=== PATIENT | male | born 1980 | race Caucasian/White ===

== ENCOUNTER 2018-01-19 18:26 | Inpatient (IN) ==
--- NOTE | 2018-01-19 19:54 | ED ---
HPI General Chief complaint: Abdominal Pain Stated complaint: abd pain Time Seen by Provider: 01/19/18 19:49 Source: patient Mode of arrival: ambulatory Limitations: no limitations History of Present Illness HPI narrative: patient is an alcoholic but currently quitting...patient just relocated to [place]. patient has had yellowing of eyes, ruq pain, n/v ongoing for past 3-4 days.... Has noted increasing distention to abdomen over the past 2 weeks Onset (ago): day(s) (4) Location: abdomen Radiation: non-radiation Severity: mild Severity scale (1-10): 2 Quality: aching Pain Consistency: intermittent Relieving factors: none Exacerbating factors: eating Associated symptoms: other (increasing swelling to his abdomen over past 2 weeks ) Treatments prior to arrival: none Related Data Home Medications Medication Instructions Recorded Confirmed No Known Home Medications 01/19/18 01/19/18 Allergies Allergy/AdvReac Type Severity Reaction Status Date / Time No Known Allergies Allergy Verified 01/19/18 19:32 Review of Systems ROS: all other systems reviewed are negative PMFSH History History Provided By: Patient Medical History Medical History Anxiety (Acute) HTN (hypertension) (Acute) Inguinal hernia (Acute) Psoriasis (Acute) Social History Social History Substance History: No History of Abuse Smoking Status: Current every day smoker Tobacco Type: Cigarettes How Often Do You Have a Drink Containing Alcohol: 4 or more times a week Recent Travel in [facility] within the Last 8 Weeks: No Recent Out of Country Travel within the Last 8 Weeks: No Immunization History Tetanus Immunization: Unsure Hx Influenza Vaccine This Season: No Exam HENMT Head: normocephalic and atraumatic Nose: no nasal discharge and no epistaxis Mouth: moist mucous membranes Eyes Sclera: scleral abnormality (icterus) bilaterally Pupils: PERRL Neck Neck: trachea midline and no JVD Resp Effort & Inspection: no use of accessory muscles Auscultation: clear to auscultation bilaterally Cardio Rate: regular rate Rhythm: regular rhythm Heart Sounds: no murmurs GI Inspection: distended and other (distended abd with fluid wave) Palpation: soft, nontender and ascites Skin General: dry skin (warm) Neuro General: alert and awake Cranial Nerves: other Speech: speech normal Motor: no movement abnormalities noted Extrem General: normal to inspection, no clubbing, no cyanosis and no edema Psych Mood: congruent mood Affect: normal affect Judgment: judgment good Course Initial Documented Vital Signs Temperature 98.5 F 01/19/18 18:30 Pulse Rate 105 H 01/19/18 18:30 Respiratory Rate 18 01/19/18 18:30 Blood Pressure 162/89 H 01/19/18 18:30 Pulse Oximetry 97 01/19/18 18:30 Last Documented Vital Signs Temperature 98.5 F 01/19/18 18:30 Pulse Rate 94 H 01/19/18 23:40 Respiratory Rate 16 01/19/18 23:40 Blood Pressure 129/77 01/19/18 23:40 Pulse Oximetry 95 01/19/18 23:40 Medical Decision Making Lab Data Lab results reviewed: Yes I reviewed the patient's lab results. Result diagrams: 01/19/18 20:11 01/19/18 20:11 Lab Results 01/19/18 01/19/18 01/19/18 Range/Units 20:11 20:11 20:11 WBC 4.7 (4.0-11.0) th/mm3 RBC 3.82 L (4.50-5.90) mil/mm3 Hgb 14.7 (13.0-17.0) gm/dL Hct 42.4 (39.0-51.0) % MCV 110.9 H (80.0-100.0) fL MCH 38.5 H (27.0-34.0) pg MCHC 34.7 (32.0-36.0) % RDW 16.4 (11.6-17.2) % Plt Count 78 L (150-450) th/mm3 MPV 8.8 (7.0-11.0) fL Prelim Diff (Auto) Slide review pending Neut % (Auto) 51.3 (16.0-70.0) % Lymph % (Auto) 27.4 (9.0-44.0) % [place] % (Auto) 19.5 H (0.0-8.0) % Eos % (Auto) 0.5 (0.0-4.0) % Baso % (Auto) 1.3 (0.0-2.0) % Neut # (Auto) 2.4 (1.8-7.7) th/mm3 Lymph # (Auto) 1.3 (1.0-4.8) th/mm3 [place] # (Auto) 0.9 (0.0-0.9) th/mm3 Eos # (Auto) 0.0 (0.0-0.4) th/mm3 Baso # (Auto) 0.1 (0.0-0.2) th/mm3 WBC Differential . Diff Scan Auto diff confirmed Differential Comment . Platelet Estimate Low L (Normal) Platelet Morphology Normal (Normal) Target Cells 1+ H (None) PT 14.0 H (9.8-11.6) sec INR 1.4 Ratio APTT 30.3 H (24.3-30.1) sec Sodium 131 L (136-145) meq/L Potassium 4.1 (3.5-5.1) meq/L Chloride 95 L (98-107) meq/L Carbon Dioxide 24.8 (21.0-32.0) meq/L Anion Gap 11 (5-15) meq/L BUN 4 L (7-18) mg/dL Creatinine 0.54 L (0.60-1.30) mg/dL Estimated GFR Greater than 89 (>89) mL/min Random Glucose 102 (74-106) mg/dL Calcium 7.9 L (8.5-10.1) mg/dL Total Bilirubin 9.9 H (0.2-1.0) mg/dL AST 270 H (15-37) U/L ALT 77 (12-78) U/L Alkaline Phosphatase 181 H (45-117) U/L Total Protein 8.2 (6.4-8.2) g/dL Albumin 2.3 L (3.4-5.0) g/dL Lipase 336 (73-393) U/L Urine Color (Yellw/Straw) Urine Clarity (Clear) Urine pH (5.0-8.5) Ur Specific [place] (1.002-1.035) Urine Protein (Neg-Trace) mg/dL Urine Glucose (UA) (Negative) mg/dL Urine Ketones (Negative) mg/dL Urine Occult Blood (Negative) Urine Nitrate (Negative) Urine Bilirubin (Negative) Urine Urobilinogen (Less than 2) mg/dL Ur Leukocyte Esterase (Negative) Urine RBC (0-3) /hpf Urine WBC (0-5) /hpf Micro UA Comment Urine Culture Comments 01/19/18 Range/Units 21:03 WBC (4.0-11.0) th/mm3 RBC (4.50-5.90) mil/mm3 Hgb (13.0-17.0) gm/dL Hct (39.0-51.0) % MCV (80.0-100.0) fL MCH (27.0-34.0) pg MCHC (32.0-36.0) % RDW (11.6-17.2) % Plt Count (150-450) th/mm3 MPV (7.0-11.0) fL Prelim Diff (Auto) Neut % (Auto) (16.0-70.0) % Lymph % (Auto) (9.0-44.0) % [place] % (Auto) (0.0-8.0) % Eos % (Auto) (0.0-4.0) % Baso % (Auto) (0.0-2.0) % Neut # (Auto) (1.8-7.7) th/mm3 Lymph # (Auto) (1.0-4.8) th/mm3 [place] # (Auto) (0.0-0.9) th/mm3 Eos # (Auto) (0.0-0.4) th/mm3 Baso # (Auto) (0.0-0.2) th/mm3 WBC Differential Diff Scan Differential Comment Platelet Estimate (Normal) Platelet Morphology (Normal) Target Cells (None) PT (9.8-11.6) sec INR Ratio APTT (24.3-30.1) sec Sodium (136-145) meq/L Potassium (3.5-5.1) meq/L Chloride (98-107) meq/L Carbon Dioxide (21.0-32.0) meq/L Anion Gap (5-15) meq/L BUN (7-18) mg/dL Creatinine (0.60-1.30) mg/dL Estimated GFR (>89) mL/min Random Glucose (74-106) mg/dL Calcium (8.5-10.1) mg/dL Total Bilirubin (0.2-1.0) mg/dL AST (15-37) U/L ALT (12-78) U/L Alkaline Phosphatase (45-117) U/L Total Protein (6.4-8.2) g/dL Albumin (3.4-5.0) g/dL Lipase (73-393) U/L Urine Color [place] (Yellw/Straw) Urine Clarity Clear (Clear) Urine pH 6.0 (5.0-8.5) Ur Specific [place] 1.006 (1.002-1.035) Urine Protein Negative (Neg-Trace) mg/dL Urine Glucose (UA) Negative (Negative) mg/dL Urine Ketones Negative (Negative) mg/dL Urine Occult Blood Negative (Negative) Urine Nitrate Negative (Negative) Urine Bilirubin Negative (Negative) Urine Urobilinogen 4 or greater (Less than 2) mg/dL Ur Leukocyte Esterase Negative (Negative) Urine RBC Less than 1 (0-3) /hpf Urine WBC 1 (0-5) /hpf Micro UA Comment Culture not ind Urine Culture Comments Culture not ind Imaging Data Radiologist's impression: Abdomen/Pelvis CT 01/19/18 19:58 CONCLUSION: 1. Cirrhotic changes of the liver have become apparent since the prior CT. There is moderate ascites and mild splenomegaly. No perceptible focal lesion on these noncontrast images. 2. Sludge and/or gravel-like stones in the gallbladder. No duct stone or ductal dilatation. Gallbladder Ultrasound 01/19/18 19:58 CONCLUSION: 1. Cirrhosis. 2. Moderate ascites. 3. Wall thickening of the gallbladder, nonspecific but not uncommonly seen in the setting of chronic liver disease. No pericholecystic fluid. Negative sonographic Mccarthy's sign. 4. Dependent sludge within the gallbladder. No shadowing stones. Discharge Plan Discharge Disposition Patient Disposition: 30 Still Patient Discharge Condition Condition: Stable Discharge Details Diagnosis: Cirrhosis of liver, Jaundice Physicians Team ED Provider: Enrique Valdez Primary Care Provider: Primary Care [place] Rxs /Orders / Referrals /Forms Prescriptions: No Action No Known Home Medications RF: 0 Discharge Interventions Interventions: Vital Signs Last Done: 01/19/18 23:40 Status ED Status: With Doctor
[2018-01-19 20:31] LABS: Baso # (Auto) 0.1 th/mm3 (0.0-0.2); Baso % (Auto) 1.3 % (0.0-2.0); Eos % (Auto) 0.5 % (0.0-4.0); Hematocrit 42.4 % (39.0-51.0); Hemoglobin 14.7 gm/dL (13.0-17.0); Lymph # (Auto) 1.3 th/mm3 (1.0-4.8); Lymph % (Auto) 27.4 % (9.0-44.0); Mean Corpuscular HGB Conc 34.7 % (32.0-36.0); Mean Corpuscular Hemoglobin 38.5 pg (27.0-34.0); Mean Corpuscular Volume 110.9 fL (80.0-100.0); Mean Platelet Volume 8.8 fL (7.0-11.0); Mono # (Auto) 0.9 th/mm3 (0.0-0.9); Mono % (Auto) 19.5 % (0.0-8.0); Neut # (Auto) 2.4 th/mm3 (1.8-7.7); Neut % (Auto) 51.3 % (16.0-70.0); Platelet Count 78 th/mm3 (150-450); Red Blood Count 3.82 mil/mm3 (4.50-5.90); Red Cell Distribution Width 16.4 % (11.6-17.2); White Blood Count 4.7 th/mm3 (4.0-11.0)
[2018-01-19 20:37] LABS: Activated Partial Thrombo Time 30.3 sec (24.3-30.1); INR 1.4 Ratio
[2018-01-19 21:06] LABS: Alkaline Phosphatase 181 U/L (45-117); Total Protein 8.2 g/dL (6.4-8.2)
[2018-01-19 21:13] LABS: Alanine Aminotransferase 77 U/L (12-78); Albumin 2.3 g/dL (3.4-5.0); Anion Gap 11 meq/L (5-15); Aspartate Aminotransferase 270 U/L (15-37); Blood Urea Nitrogen 4 mg/dL (7-18); Calcium 7.9 mg/dL (8.5-10.1); Carbon Dioxide 24.8 meq/L (21.0-32.0); Chloride 95 meq/L (98-107); Glomerular Filtration Rate Greater Than 89 mL/min (>89); Glucose,Random 102 mg/dL (74-106); Lipase 336 U/L (73-393); Sodium 131 meq/L (136-145)
[2018-01-19 21:14] LABS: Potassium 4.1 meq/L (3.5-5.1)
--- NOTE | 2018-01-19 21:26 | CT ---
EXAM DATE: 01/19/2018 9:17 PM EDT AGE/SEX: 37 years / Male INDICATIONS: Right upper quadrant pain, jaundice, and abdominal swelling. CLINICAL DATA: This is the patient's initial encounter. Patient reports that signs and symptoms have been present for 1 day and indicates a pain score of 6/10. MEDICAL/SURGICAL HISTORY: Hypertension. ETOH. None. RADIATION DOSE: 23.77 CTDI (mGy) COMPARISON: [facility] [place], CT ABDOMEN & PELVIS W CONTRAST, 09/17/2014. . TECHNIQUE: Multiple contiguous axial images were obtained through the abdomen. Images were obtained using multiple row detector helical technique. Using automated exposure control and adjustment of the mA and/or kV according to patient size, radiation dose was kept as low as reasonably achievable to o btain optimal diagnostic quality images. DICOM format image data is available electronically for rev iew and comparison. FINDINGS: Small liver with a nodular surface. There is moderate ascites. Spleen 14 cm craniocaudal. No focal he patic or splenic lesion demonstrated. There are multiple gravel-like stones versus sludge dependently in the gallbladder. No duct stone or ductal dilatation demonstrated. Pancreas, adrenal glands and kidneys are within normal limits. No obstruction or inflammatory changes are seen of the gastrointestinal tract. No free air. No lympha denopathy. Visualized lung bases are clear. No acute bony abnormality. CONCLUSION: 1. Cirrhotic changes of the liver have become apparent since the prior CT. There is moderate ascites and mild splenomegaly. No perceptible focal lesion on these noncontrast images. 2. Sludge and/or gravel-like stones in the gallbladder. No duct stone or ductal dilatation. Electronically signed by: Narinder Gooden MD 01/19/2018 9:25 PM EDT
[2018-01-19 21:27] LABS: Bilirubin,Urine Negative (Negative); Clarity,Urine Clear (Clear); Color,Urine Amber (Yellw/Straw); Glucose,Urine (UA) Negative (Negative); Leukocyte Esterase,Urine Negative (Negative); Nitrite,Urine Negative (Negative); Specific Gravity,Urine 1.006 (1.002-1.035); Urobilinogen,Urine 4 or Greater mg/dL (Less than 2)
[2018-01-19 21:42] LABS: Platelet Morphology Normal (Normal)
[2018-01-19 21:44] LABS: Target Cells 1+
--- NOTE | 2018-01-19 21:51 | US ---
EXAM DATE: 01/19/2018 9:44 PM EDT AGE/SEX: 37 years / Male INDICATIONS: Gallstones. CLINICAL DATA: This is the patient's initial encounter. Patient reports that signs and symptoms have been present for 3 weeks and indicates a pain score of 5/10. MEDICAL/SURGICAL HISTORY: Hypertension. Anxiety. Inguinal hernia. Psoriasis. None. COMPARISON: No prior exams available for comparison. MEASUREMENTS: Liver:__ 18.9 cm. Common Bile Duct:__ 5mm. FINDINGS: Liver: Micronodular liver with heterogeneous echotexture. No focal hepatic lesion demonstrated. Portal Vein: Flow velocity and direction in the main portal vein within normal limits. Common Duct: No ductal dilatation. No evidence of choledocholithiasis. Gallbladder: Not abnormally distended at the time of imaging. Wall thickness is approximately 5 mm. There is dependently layering sludge within the lumen. No perceptible stones. No pericholecystic flui d. Pancreas: Not clearly visualized Right Kidney: Normal echotexture and cortical thickness. No mass or hydronephrosis. Moderate ascites present. CONCLUSION: 1. Cirrhosis. 2. Moderate ascites. 3. Wall thickening of the gallbladder, nonspecific but not uncommonly seen in the setting of chronic liver disease. No pericholecystic fluid. Negative sonographic Mccarthy's sign. 4. Dependent sludge within the gallbladder. No shadowing stones. Electronically signed by: Narinder Gooden MD 01/19/2018 9:50 PM EDT
[2018-01-20] MEDS ORDERED: Temazepam 15 MG Capsule PO PRN (01:38)
[2018-01-20] MEDS ORDERED: Bisacodyl 10 MG Supp RECTAL PRN (01:38)
[2018-01-20] MEDS ORDERED: Haloperidol Inj 5 MG/ML Ampul IV.PUSH PRN (01:47)
[2018-01-20] MEDS ORDERED: LORazepam 1 MG Tablet PO PRN (01:47)
--- NOTE | 2018-01-20 01:50 | P.HP ---
History of Present Illness Service: [facility] Primary Care Physician: No Primary Care Physician History of Present Illness: 37-year-old male with a past medical history significant for alcohol abuse presents to the emergency department for evaluation of abdominal bloating and scleral icterus. The patient reports that his symptoms have been going on for the past 3 weeks. He states he was drinking approximately 18 beers a day until 3 weeks ago when he cut back to approximately 5 beers per day. He denies any abdominal pain. No shortness of breath. No fevers/chills. Review of Systems Denies fever or chills Denies blurry vision, otorrhea, rhinorrhea Denies sore throat and cough No chest pain, palpitations No shortness of breath or wheezing No abdominal pain Denies constipation/diarrhea/nausea/vomiting Denies muscle pain Denies focal weakness No rashes PMFSH - History History Provided By: Patient - Medical / Surgical Hx Neg / Unobtainable Medical Problems Denied: Yes - Medical History Medical History: Medical History (Last Reviewed 01/19/18 @ 23:52 by Enrique Valdez) Anxiety HTN (hypertension) Inguinal hernia Psoriasis - Surgical History Surgical History: Surgical History (Last Updated 01/20/18 @ 01:44 by Viky Florentino MD) H/O hernia repair - Tobacco History Tobacco Use In Past 30 Days: Yes Smoking Status: Current every day smoker Tobacco Type: Cigarettes - Alcohol History How Often Do You Have a Drink Containing Alcohol: 4 or more times a week - Substance Use History Substance History: No History of Abuse - Travel History Recent Travel in the [place] Within the Last 8 Weeks: No Recent Travel Out of the Country Within the Last 8 Weeks: No - Immunization History Tetanus Immunization: Unsure Hx Influenza Vaccine This Season: No Medications and Allergies Active Medications: Active Medications Sodium Chloride (Ns Flush) 2 ml IV.FLUSH PRN PRN PRN Reason: FLUSH AFTER USING IV ACCESS Allergies Allergy/AdvReac Type Severity Reaction Status Date / Time No Known Allergies Allergy Verified 01/19/18 19:32 Home Medications Medication Instructions Recorded Confirmed Type No Known Home Medications 01/19/18 01/19/18 History Exam Vital signs: Vital Signs 01/19/18 18:30 01/19/18 19:32 01/19/18 23:40 Temperature 98.5 F Pulse Rate 105 H 92 H 94 H Respiratory Rate 18 18 16 Blood Pressure 162/89 H 161/91 H 129/77 Pulse Oximetry 97 96 95 Intake & Output 01/19/18 01/19/18 01/20/18 06:59 18:59 06:59 Weight 110.3 kg Narrative: Gen.: No acute distress Head: Normocephalic. Atraumatic. EENT: Pupils equal round and reactive to light. Positive scleral icterus. Nose without drainage. Airway intact. Throat without injection. Cardiovascular: Regular rate and rhythm. No murmurs, rubs or gallops. Respiratory: Lungs clear to auscultation bilaterally. No wheezes or rhonchi. Abdomen: Soft, nontender, distended. No peritoneal signs. Musculoskeletal: No gross deformities. No edema. Skin: Psoriatic lesions on the abdomen Neuro: Sensory and motor grossly intact. Cranial nerves II through XII grossly intact. Psych: Appropriate mood and affect Results - Labs CBC & Chem 7: 01/19/18 20:11 01/19/18 20:11 Labs: Laboratory Results - last 24 hr 01/19/18 01/19/18 01/19/18 20:11 20:11 20:11 WBC 4.7 RBC 3.82 L Hgb 14.7 Hct 42.4 MCV 110.9 H MCH 38.5 H MCHC 34.7 RDW 16.4 Plt Count 78 L MPV 8.8 Prelim Diff (Auto) Slide review pending Neut % (Auto) 51.3 Lymph % (Auto) 27.4 [place] % (Auto) 19.5 H Eos % (Auto) 0.5 Baso % (Auto) 1.3 Neut # (Auto) 2.4 Lymph # (Auto) 1.3 [place] # (Auto) 0.9 Eos # (Auto) 0.0 Baso # (Auto) 0.1 WBC Differential . Diff Scan Auto diff confirmed Differential Comment . Platelet Estimate Low L Platelet Morphology Normal Target Cells 1+ H PT 14.0 H INR 1.4 APTT 30.3 H Sodium 131 L Potassium 4.1 Chloride 95 L Carbon Dioxide 24.8 Anion Gap 11 BUN 4 L Creatinine 0.54 L Estimated GFR Greater than 89 Random Glucose 102 Calcium 7.9 L Total Bilirubin 9.9 H AST 270 H ALT 77 Alkaline Phosphatase 181 H Total Protein 8.2 Albumin 2.3 L Lipase 336 Urine Color Urine Clarity Urine pH Ur Specific [place] Urine Protein Urine Glucose (UA) Urine Ketones Urine Occult Blood Urine Nitrate Urine Bilirubin Urine Urobilinogen Ur Leukocyte Esterase Urine RBC Urine WBC Micro UA Comment Urine Culture Comments 01/19/18 21:03 WBC RBC Hgb Hct MCV MCH MCHC RDW Plt Count MPV Prelim Diff (Auto) Neut % (Auto) Lymph % (Auto) [place] % (Auto) Eos % (Auto) Baso % (Auto) Neut # (Auto) Lymph # (Auto) [place] # (Auto) Eos # (Auto) Baso # (Auto) WBC Differential Diff Scan Differential Comment Platelet Estimate Platelet Morphology Target Cells PT INR APTT Sodium Potassium Chloride Carbon Dioxide Anion Gap BUN Creatinine Estimated GFR Random Glucose Calcium Total Bilirubin AST ALT Alkaline Phosphatase Total Protein Albumin Lipase Urine Color Keila Urine Clarity Clear Urine pH 6.0 Ur Specific [place] 1.006 Urine Protein Negative Urine Glucose (UA) Negative Urine Ketones Negative Urine Occult Blood Negative Urine Nitrate Negative Urine Bilirubin Negative Urine Urobilinogen 4 or greater Ur Leukocyte Esterase Negative Urine RBC Less than 1 Urine WBC 1 Micro UA Comment Culture not ind Urine Culture Comments Culture not ind - Imaging Impressions Abdomen/Pelvis CT 01/19/18 19:58 CONCLUSION: 1. Cirrhotic changes of the liver have become apparent since the prior CT. There is moderate ascites and mild splenomegaly. No perceptible focal lesion on these noncontrast images. 2. Sludge and/or gravel-like stones in the gallbladder. No duct stone or ductal dilatation. Gallbladder Ultrasound 01/19/18 19:58 CONCLUSION: 1. Cirrhosis. 2. Moderate ascites. 3. Wall thickening of the gallbladder, nonspecific but not uncommonly seen in the setting of chronic liver disease. No pericholecystic fluid. Negative sonographic Mccarthy's sign. 4. Dependent sludge within the gallbladder. No shadowing stones. Caprini VTE Risk Assessment Caprini VTE Risk Assessment: No/Low Risk (score <= 1) Caprini Risk Assessment Model: Point Value = 1 Point Value = 2 Point Value = 3 Point Value = 5 Age 41-60 Minor surgery BMI > 25 kg/m2 Swollen legs Varicose veins or History of unexplained or recurrent spontaneous Oral contraceptives or hormone replacement Sepsis (< 1 month) Serious lung disease, including pneumonia (< 1 month) Abnormal pulmonary function Acute myocardial infarction Congestive heart failure (< 1 month) History of inflammatory bowel disease Medical patient at bed rest Age 61-74 Arthroscopic surgery Major open surgery (> 45 min) Laparoscopic surgery (> 45 min) Malignancy Confined to bed (> 72 hours) Immobilizing plaster cast Central venous access Age >= 75 History of VTE Family history of VTE Factor V Leiden Prothrombin [id number] Lupus anticoagulant Anticardiolipin antibodies Elevated serum homocysteine Heparin-induced thrombocytopenia Other congenital or acquired thrombophilia Stroke (< 1 month) Elective arthroplasty Hip, pelvis, or leg fracture Acute spinal cord injury (< 1 month) Prophylaxis Regimen: Total Risk Factor Score Risk Level Prophylaxis Regimen 0-1 Low Early ambulation 2 Moderate Order ONE of the following: *Sequential Compression Device (SCD) *Heparin 5000 units SQ BID 3-4 Higher Order ONE of the following medications: *Heparin 5000 units SQ TID *Enoxaparin/Lovenox 40 mg SQ daily (WT < 150 kg, CrCl > 30 mL/min) *Enoxaparin/Lovenox 30 mg SQ daily (WT < 150 kg, CrCl > 10-29 mL/min) *Enoxaparin/Lovenox 30 mg SQ BID (WT < 150 kg, CrCl > 30 mL/min) AND/OR *Sequential Compression Device (SCD) 5 or more Highest Order ONE of the following medications: *Heparin 5000 units SQ TID (Preferred with Epidurals) *Enoxaparin/Lovenox 40 mg SQ daily (WT < 150 kg, CrCl > 30 mL/min) *Enoxaparin/Lovenox 30 mg SQ daily (WT < 150 kg, CrCl > 10-29 mL/min) *Enoxaparin/Lovenox 30 mg SQ BID (WT < 150 kg, CrCl > 30 mL/min) AND *Sequential Compression Device (SCD) Assessment and Plan - Plan Assessment/plan: 1. Newly diagnosed liver cirrhosis Patient with no history of cirrhosis now with cirrhosis on CT scan and ultrasound Likely secondary to alcohol abuse Hepatitis profile pending Moderate ascites present -patient may benefit from paracentesis Gastroenterology consulted, appreciate recommendations 2. Alcohol abuse Cessation counseling provided [facility] protocol Monitor for signs of withdrawal FEN Regular diet Electrolytes: Monitor and replete as needed
[2018-01-20 03:52] LABS: Hepatitis A IgM Antibody Nonreactive (Nonreactive)
[2018-01-20 03:53] LABS: Hepatitits B Surface Antigen Nonreactive (Nonreactive)
[2018-01-20] MEDS: Senna/Docusate Sodium 8.6/50 MG Tablet PO SCH ×2 (09:01→22:53)
[2018-01-20] MEDS: Folic Acid 1 MG Tablet PO SCH (09:01)
[2018-01-20] MEDS: Multivitamin/Minerals Therapeutic Tablet PO SCH (09:01)
--- NOTE | 2018-01-20 09:26 | P.CONGI ---
History of Present Illness Consult date: 01/20/18 Consult reason: Newly diagnosed cirrhosis Chief complaint: Decompensated Cirrhosis Newly Diagnosed, Jaundice History of Present Illness: This is a 37 yo M with PMH significant for psoriasis and HTN who has not taken his Lisinopril in about a year who presented to the ER yesterday with complaints of abdominal swelling and yellowing of his eyes. States he first noticed these symptoms about three weeks ago. Pt was drinking 18 beers a day for multiple years but cut back to 5 beers a day about 3 weeks ago. Reports some nausea and emesis when he cut back on his drinking secondary to withdraw symptoms but denies any other nausea and vomiting although he has been asking for nausea medication throughout his admission. Denies abdominal pain. Reports he has been constipated and has tried taking Milk of Magnesia once which did help some. Denies hematochezia and melena. Denies any previous personal diagnosis of liver issues and does not believe he has any family history significant for cirrhosis. Denies previous or current illicit drug use. Denies any prescription medications or OTC medications. Smokes 1/2 PPD. <Angeles Braga - Last Filed: 01/20/18 09:12> Review of Systems Eyes: Reports other (yellowing of his eyes) Gastrointestinal: Reports constipation, Reports nausea, Reports vomiting, Denies abdominal pain, Denies black, tarry stools, Denies bright, red blood in stools, Denies coffee ground vomit, Denies vomiting blood Comments: abdominal swelling Skin/Breast: Denies itching <Angeles Braga - Last Filed: 01/20/18 09:12> [facility] - History History Provided By: Patient - Medical / Surgical Hx Neg / Unobtainable Medical Problems Denied: Yes - Medical History Medical History: Medical History (Last Reviewed 01/19/18 @ 23:52 by Enrique Valdez) Anxiety HTN (hypertension) Inguinal hernia Psoriasis - Surgical History Surgical History: Surgical History (Last Updated 01/20/18 @ 01:44 by Viky Florentino MD) H/O hernia repair - Tobacco History Second Hand Smoke Exposure: Yes Tobacco Use In Past 30 Days: Yes Smoking Status: Current every day smoker Tobacco Type: Cigarettes - Alcohol History How Often Do You Have a Drink Containing Alcohol: 4 or more times a week - Substance Use History Substance History: No History of Abuse - Travel History Recent Travel in the [place] Within the Last 8 Weeks: No Recent Travel Out of the Country Within the Last 8 Weeks: No - Immunization History Tetanus Immunization: Unsure Hx Influenza Vaccine This Season: No <ChristopheAngeles green - Last Filed: 01/20/18 09:12> - Medical History Medical History: Medical History (Last Reviewed 01/19/18 @ 23:52 by Enrique Vladez) Anxiety HTN (hypertension) Inguinal hernia Psoriasis - Surgical History Surgical History: Surgical History (Last Updated 01/20/18 @ 01:44 by Viky Florentino MD) H/O hernia repair <Yi Winters - Last Filed: 01/20/18 18:28> Medications and Allergies Active Medications: Active Medications Al Hydroxide/Mg Hydroxide (Milk Of Magnesia Liq) 30 ml PO Q12H PRN PRN Reason: Mild Constipation Bisacodyl (Dulcolax Supp) 10 mg RECTAL DAILY PRN PRN Reason: SEVERE CONSITIPATION Flumazenil (Romazecon Inj) 0.2 mg IV.PUSH Q1M PRN PRN Reason: OVERSEDATION Folic Acid (Folic Acid) 1 mg PO DAILY SD Stop: 01/25/18 08:59 Last Admin: 01/20/18 09:01 Dose: 1 mg Haloperidol Lactate (Haldol Inj) 1 mg IV.PUSH Q15M PRN PRN Reason: for severe agitation Lactulose (Lactulose Liq) 30 ml PO DAILY PRN PRN Reason: SEVERE CONSITIPATION Lorazepam (Ativan) 1 mg PO Q4H PRN PRN Reason: for CIWA 8-10 Lorazepam (Ativan) 2 mg PO Q2H PRN PRN Reason: for CIWA 11-14 Lorazepam (Ativan Inj) 2 mg IV.PUSH Q2H PRN PRN Reason: for CIWA 11-14 Lorazepam (Ativan Inj) 2 mg IV.PUSH Q1H PRN PRN Reason: for CIWA 15-20 Lorazepam (Ativan Inj) 2 mg IV.PUSH Q15M PRN PRN Reason: for CIWA > 20 Lorazepam (Ativan Inj) 1 mg IV.PUSH Q4H PRN PRN Reason: for CIWA 8-10 Multivitamins/Minerals (Theragran-M) 1 tab PO DAILY SD Stop: 01/25/18 08:59 Last Admin: 01/20/18 09:01 Dose: 1 tab Ondansetron HCl (Zofran Inj) 4 mg IV.PUSH Q6H PRN PRN Reason: NAUSEA OR VOMITING Last Admin: 01/20/18 09:01 Dose: 4 mg Senna/Docusate Sodium (Dianna-Colace) 1 tab PO BID [facility] Last Admin: 01/20/18 09:01 Dose: 1 tab Sennosides (Senokot) 17.2 mg PO Q12H PRN PRN Reason: Moderate Constipation Sodium Chloride (Ns Flush) 2 ml IV.FLUSH PRN PRN PRN Reason: FLUSH AFTER USING IV ACCESS Temazepam (Restoril) 15 mg PO HS PRN PRN Reason: INSOMNIA Thiamine HCl (Vitamin B1) 100 mg PO DAILY [facility] Last Admin: 01/20/18 09:01 Dose: 100 mg <Angeles Braga - Last Filed: 01/20/18 09:12> Active Medications: Active Medications Al Hydroxide/Mg Hydroxide (Milk Of Magnesia Liq) 30 ml PO Q12H PRN PRN Reason: Mild Constipation Bisacodyl (Dulcolax Supp) 10 mg RECTAL DAILY PRN PRN Reason: SEVERE CONSITIPATION Flumazenil (Romazecon Inj) 0.2 mg IV.PUSH Q1M PRN PRN Reason: OVERSEDATION Folic Acid (Folic Acid) 1 mg PO DAILY [facility] Stop: 01/25/18 08:59 Last Admin: 01/20/18 09:01 Dose: 1 mg Haloperidol Lactate (Haldol Inj) 1 mg IV.PUSH Q15M PRN PRN Reason: for severe agitation Lactulose (Lactulose Liq) 30 ml PO DAILY PRN PRN Reason: SEVERE CONSITIPATION Lactulose (Lactulose Liq) 30 ml PO BID [facility] Lorazepam (Ativan) 1 mg PO Q4H PRN PRN Reason: for CIWA 8-10 Lorazepam (Ativan) 2 mg PO Q2H PRN PRN Reason: for CIWA 11-14 Lorazepam (Ativan Inj) 2 mg IV.PUSH Q2H PRN PRN Reason: for CIWA 11-14 Last Admin: 01/20/18 11:24 Dose: 2 mg Lorazepam (Ativan Inj) 2 mg IV.PUSH Q1H PRN PRN Reason: for CIWA 15-20 Lorazepam (Ativan Inj) 2 mg IV.PUSH Q15M PRN PRN Reason: for CIWA > 20 Lorazepam (Ativan Inj) 1 mg IV.PUSH Q4H PRN PRN Reason: for CIWA 8-10 Multivitamins/Minerals (Theragran-M) 1 tab PO DAILY [facility] Stop: 01/25/18 08:59 Last Admin: 01/20/18 09:01 Dose: 1 tab Ondansetron HCl (Zofran Inj) 4 mg IV.PUSH Q6H PRN PRN Reason: NAUSEA OR VOMITING Last Admin: 01/20/18 14:31 Dose: 4 mg Patient Own Medication (Patient Own Medication) 1 each TOPICAL BID [facility] Senna/Docusate Sodium (Dianna-Colace) 1 tab PO BID [facility] Last Admin: 01/20/18 09:01 Dose: 1 tab Sennosides (Senokot) 17.2 mg PO Q12H PRN PRN Reason: Moderate Constipation Sodium Chloride (Ns Flush) 2 ml IV.FLUSH PRN PRN PRN Reason: FLUSH AFTER USING IV ACCESS Temazepam (Restoril) 15 mg PO HS PRN PRN Reason: INSOMNIA Thiamine HCl (Vitamin B1) 100 mg PO DAILY [facility] Last Admin: 01/20/18 09:01 Dose: 100 mg <Yi Winters - Last Filed: 01/20/18 18:28> Allergies Allergy/AdvReac Type Severity Reaction Status Date / Time No Known Allergies Allergy Verified 01/19/18 19:32 Home Medications Medication Instructions Recorded Confirmed Type No Known Home Medications 01/19/18 01/19/18 History Exam Vital signs: Vital Signs 01/19/18 18:30 01/19/18 19:32 01/19/18 23:40 Temperature 98.5 F Pulse Rate 105 H 92 H 94 H Respiratory Rate 18 18 16 Blood Pressure 162/89 H 161/91 H 129/77 Pulse Oximetry 97 96 95 01/20/18 04:00 01/20/18 07:46 Temperature 98.0 F 97.9 F Pulse Rate 80 84 Respiratory Rate 18 16 Blood Pressure 111/73 110/66 Pulse Oximetry 95 95 Intake & Output 01/19/18 01/20/18 01/20/18 18:59 06:59 18:59 Weight 110.3 kg 110.3 kg Other: Weight On Admission 110.3 kg - Constitutional no acute distress - Routine HEENT Exam Head: Present: normocephalic, atraumatic Eye: Present: conjunctival icterus - Routine Respiratory Exam Absent: accessory muscle use - Routine Cardiovascular Exam Present: RRR - Routine Abdominal Exam Present: soft, normoactive bowel sounds, distended. Absent: tenderness - Routine Skin Exam Present: dry, warm, jaundice - Routine Neurological Exam Present: alert, oriented X3 <Angeles Braga - Last Filed: 01/20/18 09:12> Vital signs: Vital Signs 01/19/18 18:30 01/19/18 19:32 01/19/18 23:40 Temperature 98.5 F Pulse Rate 105 H 92 H 94 H Respiratory Rate 18 18 16 Blood Pressure 162/89 H 161/91 H 129/77 Pulse Oximetry 97 96 95 01/20/18 04:00 01/20/18 07:46 01/20/18 10:57 Temperature 98.0 F 97.9 F 98.0 F Pulse Rate 80 84 88 Respiratory Rate 18 16 22 Blood Pressure 111/73 110/66 150/92 H Pulse Oximetry 95 95 96 01/20/18 12:20 01/20/18 12:35 01/20/18 12:47 Temperature 98.0 F 98.3 F Pulse Rate 76 71 65 Respiratory Rate 16 16 16 Blood Pressure 126/80 105/68 133/84 Pulse Oximetry 97 99 93 L 01/20/18 15:48 Temperature 98.2 F Pulse Rate 81 Respiratory Rate 16 Blood Pressure 126/76 Pulse Oximetry 96 Intake & Output 01/19/18 01/20/18 01/20/18 18:59 06:59 18:59 Intake Total 150 / 150 Balance 150 / 150 Weight 110.3 kg 110.3 kg Intake: IV 150 / 150 Flexbumin 25% Inj 150 ML @ 60 150 / 150 mls/hr IV.SIG ONCE ONE Rx#: [id number] Other: Weight On Admission 110.3 kg <Yi Winters - Last Filed: 01/20/18 18:28> Results - Labs CBC & Chem 7: 01/19/18 20:11 01/19/18 20:11 Labs: Laboratory Results - last 24 hr 01/19/18 01/19/1801/19/18 20:11 20:11 20:11 WBC 4.7 RBC 3.82 L Hgb 14.7 Hct 42.4 MCV 110.9 H MCH 38.5 H MCHC 34.7 RDW 16.4 Plt Count 78 L MPV 8.8 Prelim Diff (Auto) Slide review pending Neut % (Auto) 51.3 Lymph % (Auto) 27.4 [place] % (Auto) 19.5 H Eos % (Auto) 0.5 Baso % (Auto) 1.3 Neut # (Auto) 2.4 Lymph # (Auto) 1.3 [place] # (Auto) 0.9 Eos # (Auto) 0.0 Baso # (Auto) 0.1 WBC Differential . Diff Scan Auto diff confirmed Differential Comment . Platelet Estimate Low L Platelet Morphology Normal Target Cells 1+ H PT 14.0 H INR 1.4 APTT 30.3 H Sodium 131 L Potassium 4.1 Chloride 95 L Carbon Dioxide 24.8 Anion Gap 11 BUN 4 L Creatinine 0.54 L Estimated GFR Greater than 89 Random Glucose 102 Calcium 7.9 L Total Bilirubin 9.9 H AST 270 H ALT 77 Alkaline Phosphatase 181 H Ammonia Total Protein 8.2 Albumin 2.3 L Lipase 336 Urine Color Urine Clarity Urine pH Ur Specific [place] Urine Protein Urine Glucose (UA) Urine Ketones Urine Occult Blood Urine Nitrate Urine Bilirubin Urine Urobilinogen Ur Leukocyte Esterase Urine RBC Urine WBC Micro UA Comment Urine Culture Comments Hepatitis A IgM Ab Hep Bs Antigen Hep B Core IgM Ab Hep C IgG Ab 01/19/18 01/20/18 01/20/18 21:03 02:14 02:14 WBC RBC Hgb Hct MCV MCH MCHC RDW Plt Count MPV Prelim Diff (Auto) Neut % (Auto) Lymph % (Auto) [place] % (Auto) Eos % (Auto) Baso % (Auto) Neut # (Auto) Lymph # (Auto) [place] # (Auto) Eos # (Auto) Baso # (Auto) WBC Differential Diff Scan Differential Comment Platelet Estimate Platelet Morphology Target Cells PT INR APTT Sodium Potassium Chloride Carbon Dioxide Anion Gap BUN Creatinine Estimated GFR Random Glucose Calcium Total Bilirubin AST ALT Alkaline Phosphatase Ammonia 45 H Total Protein Albumin Lipase Urine Color Keila Urine Clarity Clear Urine pH 6.0 Ur Specific [place] 1.006 Urine Protein Negative Urine Glucose (UA) Negative Urine Ketones Negative Urine Occult Blood Negative Urine Nitrate Negative Urine Bilirubin Negative Urine Urobilinogen 4 or greater Ur Leukocyte Esterase Negative Urine RBC Less than 1 Urine WBC 1 Micro UA Comment Culture not ind Urine Culture Comments Culture not ind Hepatitis A IgM Ab Nonreactive Hep Bs Antigen Nonreactive Hep B Core IgM Ab Nonreactive Hep C IgG Ab Nonreactive - Imaging Impressions Abdomen/Pelvis CT 01/19/18 19:58 CONCLUSION: 1. Cirrhotic changes of the liver have become apparent since the prior CT. There is moderate ascites and mild splenomegaly. No perceptible focal lesion on these noncontrast images. 2. Sludge and/or gravel-like stones in the gallbladder. No duct stone or ductal dilatation. Gallbladder Ultrasound 01/19/18 19:58 CONCLUSION: 1. Cirrhosis. 2. Moderate ascites. 3. Wall thickening of the gallbladder, nonspecific but not uncommonly seen in the setting of chronic liver disease. No pericholecystic fluid. Negative sonographic Mccarthy's sign. 4. Dependent sludge within the gallbladder. No shadowing stones. <Angeles Braga - Last Filed: 01/20/18 09:12> - Labs CBC & Chem 7: 01/19/18 20:11 01/19/18 20:11 Labs: Laboratory Results - last 24 hr 01/19/18 01/19/18 01/19/18 20:11 20:11 20:11 WBC 4.7 RBC 3.82 L Hgb 14.7 Hct 42.4 MCV 110.9 H MCH 38.5 H MCHC 34.7 RDW 16.4 Plt Count 78 L MPV 8.8 Prelim Diff (Auto) Slide review pending Neut % (Auto) 51.3 Lymph % (Auto) 27.4 [place] % (Auto) 19.5 H Eos % (Auto) 0.5 Baso % (Auto) 1.3 Neut # (Auto) 2.4 Lymph # (Auto) 1.3 [place] # (Auto) 0.9 Eos # (Auto) 0.0 Baso # (Auto) 0.1 WBC Differential . Diff Scan Auto diff confirmed Differential Comment . Platelet Estimate Low L Platelet Morphology Normal Target Cells 1+ H PT 14.0 H INR 1.4 APTT 30.3 H Sodium 131 L Potassium 4.1 Chloride 95 L Carbon Dioxide 24.8 Anion Gap 11 BUN 4 L Creatinine 0.54 L Estimated GFR Greater than 89 Random Glucose 102 Calcium 7.9 L Iron TIBC % Saturation Ferritin Total Bilirubin 9.9 H AST 270 H ALT 77 Alkaline Phosphatase 181 H Ammonia Total Protein 8.2 Albumin 2.3 L Lipase 336 Tumor Marker AFP Urine Color Urine Clarity Urine pH Ur Specific [place] Urine Protein Urine Glucose (UA) Urine Ketones Urine Occult Blood Urine Nitrate Urine Bilirubin Urine Urobilinogen Ur Leukocyte Esterase Urine RBC Urine WBC Micro UA Comment Urine Culture Comments Peritoneal RBC Periton Nuc Cells Periton Neutrophils Periton Lymphocytes Peritoneal Monocytes Periton Mesothelial Periton Histiocytes Peritoneal Tot Protein Peritoneal Albumin Peritoneal LDH Peritoneal Glucose Peritoneal Amylase Hepatitis A IgM Ab Hep Bs Antigen Hep B Core IgM Ab Hep C IgG Ab 01/19/18 01/20/18 01/20/18 21:03 02:14 02:14 WBC RBC Hgb Hct MCV MCH MCHC RDW Plt Count MPV Prelim Diff (Auto) Neut % (Auto) Lymph % (Auto) [place] % (Auto) Eos % (Auto) Baso % (Auto) Neut # (Auto) Lymph # (Auto) [place] # (Auto) Eos # (Auto) Baso # (Auto) WBC Differential Diff Scan Differential Comment Platelet Estimate Platelet Morphology Target Cells PT INR APTT Sodium Potassium Chloride Carbon Dioxide Anion Gap BUN Creatinine Estimated GFR Random Glucose Calcium Iron TIBC % Saturation Ferritin Total Bilirubin AST ALT Alkaline Phosphatase Ammonia 45 H Total Protein Albumin Lipase Tumor Marker AFP Urine Color [place] Urine Clarity Clear Urine pH 6.0 Ur Specific [place] 1.006 Urine Protein Negative Urine Glucose (UA) Negative Urine Ketones Negative Urine Occult Blood Negative Urine Nitrate Negative Urine Bilirubin Negative Urine Urobilinogen 4 or greater Ur Leukocyte Esterase Negative Urine RBC Less than 1 Urine WBC 1 Micro UA Comment Culture not ind Urine Culture Comments Culture not ind Peritoneal RBC Periton Nuc Cells Periton Neutrophils Periton Lymphocytes Peritoneal Monocytes Periton Mesothelial Periton Histiocytes Peritoneal Tot Protein Peritoneal Albumin Peritoneal LDH Peritoneal Glucose Peritoneal Amylase Hepatitis A IgM Ab Nonreactive Hep Bs Antigen Nonreactive Hep B Core IgM Ab Nonreactive Hep C IgG Ab Nonreactive 01/20/18 01/20/18 01/20/18 11:49 11:49 13:45 WBC RBC Hgb Hct MCV MCH MCHC RDW Plt Count MPV Prelim Diff (Auto) Neut % (Auto) Lymph % (Auto) [place] % (Auto) Eos % (Auto) Baso % (Auto) Neut # (Auto) Lymph # (Auto) [place] # (Auto) Eos # (Auto) Baso # (Auto) WBC Differential Diff Scan Differential Comment Platelet Estimate Platelet Morphology Target Cells PT INR APTT Sodium Potassium Chloride Carbon Dioxide Anion Gap BUN Creatinine Estimated GFR Random Glucose Calcium Iron 95 TIBC 106 L % Saturation 89.3 H Ferritin 1546 H Total Bilirubin AST ALT Alkaline Phosphatase Ammonia Total Protein Albumin Lipase Tumor Marker AFP 4.6 Urine Color Urine Clarity Urine pH Ur Specific [place] Urine Protein Urine Glucose (UA) Urine Ketones Urine Occult Blood Urine Nitrate Urine Bilirubin Urine Urobilinogen Ur Leukocyte Esterase Urine RBC Urine WBC Micro UA Comment Urine Culture Comments Peritoneal RBC 585 H [place] Nuc Cells 121 H [place] Neutrophils 21 [place] Lymphocytes 66 Peritoneal Monocytes 7 [place] Mesothelial 3 Periton Histiocytes 3 Peritoneal Tot Protein 1.7 Peritoneal Albumin 0.6 Peritoneal LDH 90 Peritoneal Glucose 98 Peritoneal Amylase 17 Hepatitis A IgM Ab Hep Bs Antigen Hep B Core IgM Ab Hep C IgG Ab - Imaging Impressions Abdomen/Pelvis CT 01/19/18 19:58 CONCLUSION: 1. Cirrhotic changes of the liver have become apparent since the prior CT. There is moderate ascites and mild splenomegaly. No perceptible focal lesion on these noncontrast images. 2. Sludge and/or gravel-like stones in the gallbladder. No duct stone or ductal dilatation. Gallbladder Ultrasound 01/19/18 19:58 CONCLUSION: 1. Cirrhosis. 2. Moderate ascites. 3. Wall thickening of the gallbladder, nonspecific but not uncommonly seen in the setting of chronic liver disease. No pericholecystic fluid. Negative sonographic Mccarthy's sign. 4. Dependent sludge within the gallbladder. No shadowing stones. Paracentesis Ultrasound 01/20/18 00:00 CONCLUSION: 1. Successful abdominal paracentesis. <SinghNunue - Last Filed: 01/20/18 18:28> Assessment and Plan - Plan Assessment: - Newly diagnosed cirrhosis likely secondary to ETOH and labs consistent with ETOH hepatitis Pt reports he has been drinking 18 beers a day for multiple years but cut back to 5 beers a day about 3 weeks ago. Denies current on previous use of illicit drugs. Denies prescription or OTC medication. Denies any previous personal history of liver issues. Denies known family history of cirrhosis. Complaining of abdominal swelling and yellowing of his eyes x 3 weeks. Gallbladder US --> Cirrhosis. Moderate ascites. Wall thickening of the gallbladder, nonspecific but not uncommonly seen in the setting of chronic liver disease. No pericholecystic fluid. Negative sonographic Mccarthy's sign. Dependent sludge within the gallbladder. No shadowing stones. CT abdomen and pelvis WO IV contrast --> Cirrhotic changes of the liver have become apparent since the prior CT. There is moderate ascites and mild splenomegaly. No perceptible focal lesion on these noncontrast images. Sludge and/or gravel-like stones in the gallbladder. No duct stone or ductal dilatation. (01/19) AST-270 ALT-77 Alk phos-181 T bili-9.9 DF-19 MELD-19 Ammonia-45 Hepatitis panel negative Labs consistent with cirrhosis Hypoalbuminemia (albumin-2.3) Coagulopathy (INR 1.4) Thrombocytopenia ( platelets-78) Plan: Liver work up to rule out other etiology Diagnostic and therapeutic paracentesis No indication for steroids DF-19 Lactulose Alcohol withdraw protocol Counseled pt on alcohol cessation Antiemetics PRN Further recommendations to follow Pt has been seen and examined by myself and Dr. Winters and this note is written on her behalf <Angeles Braga - Last Filed: 01/20/18 09:12> - Attending Attestation seen, examined agree with above <Yi Winters - Last Filed: 01/20/18 18:28>
--- NOTE | 2018-01-20 09:41 | P.PN ---
Subjective Interval history: Follow-up for ascites, new onset liver failure. The patient reports feeling nauseous today, with episodes of dry heaving and small amounts of clear nonbloody emesis. He reports continued abdominal swelling and pressure, but denies any significant abdominal pain. Denies fevers or chills. He states he has been constipated recently, however took milk of mag at home and has now had a few loose bowel movements. He states he has been a daily drinker for many years, but is motivated to quit drinking. Physical Exam Vital signs: Vital Signs 01/19/18 18:30 01/19/18 19:32 01/19/18 23:40 Temperature 98.5 F Pulse Rate 105 H 92 H 94 H Respiratory Rate 18 18 16 Blood Pressure 162/89 H 161/91 H 129/77 Pulse Oximetry 97 96 95 01/20/18 04:00 01/20/18 07:46 Temperature 98.0 F 97.9 F Pulse Rate 80 84 Respiratory Rate 18 16 Blood Pressure 111/73 110/66 Pulse Oximetry 95 95 Intake & Output 01/19/18 01/20/18 01/20/18 18:59 06:59 18:59 Weight 110.3 kg 110.3 kg Other: Weight On Admission 110.3 kg Narrative: GENERAL: Well-nourished, well-developed middle-aged male patient in [facility]. SKIN: Warm and dry. Multiple areas of patchy erythematous plaques consistent with psoriasis. HEENT: Normocephalic. Atraumatic. Pupils equal and round. + Scleral icterus. NECK: Supple. Trachea midline. CARDIOVASCULAR: Regular rate and rhythm. No murmur appreciated. RESPIRATORY: No accessory muscle use. Clear to auscultation. Breath sounds equal bilaterally. GASTROINTESTINAL: Abdomen soft, with distention and positive fluid wave consistent with ascites. Normoactive bowel sounds x4. MUSCULOSKELETAL: No obvious deformities. Extremities without clubbing, cyanosis , or edema. NEUROLOGICAL: Awake and alert. No obvious cranial nerve deficits. Motor grossly within normal limits. Moving all extremities spontaneously. Normal speech. PSYCHIATRIC: Appropriate mood and affect; insight and judgment normal. Results - Labs CBC & Chem 7: 01/19/18 20:11 01/19/18 20:11 Laboratory Results - last 24 hr 01/19/18 01/19/18 01/19/18 20:11 20:11 20:11 WBC 4.7 RBC 3.82 L Hgb 14.7 Hct 42.4 MCV 110.9 H MCH 38.5 H MCHC 34.7 RDW 16.4 Plt Count 78 L MPV 8.8 Prelim Diff (Auto) Slide review pending Neut % (Auto) 51.3 Lymph % (Auto) 27.4 [place] % (Auto) 19.5 H Eos % (Auto) 0.5 Baso % (Auto) 1.3 Neut # (Auto) 2.4 Lymph # (Auto) 1.3 [place] # (Auto) 0.9 Eos # (Auto) 0.0 Baso # (Auto) 0.1 WBC Differential . Diff Scan Auto diff confirmed Differential Comment . Platelet Estimate Low L Platelet Morphology Normal Target Cells 1+ H PT 14.0 H INR 1.4 APTT 30.3 H Sodium 131 L Potassium 4.1 Chloride 95 L Carbon Dioxide 24.8 Anion Gap 11 BUN 4 L Creatinine 0.54 L Estimated GFR Greater than 89 Random Glucose 102 Calcium 7.9 L Total Bilirubin 9.9 H AST 270 H ALT 77 Alkaline Phosphatase 181 H Ammonia Total Protein 8.2 Albumin 2.3 L Lipase 336 Urine Color Urine Clarity Urine pH Ur Specific [place] Urine Protein Urine Glucose (UA) Urine Ketones Urine Occult Blood Urine Nitrate Urine Bilirubin Urine Urobilinogen Ur Leukocyte Esterase Urine RBC Urine WBC Micro UA Comment Urine Culture Comments Hepatitis A IgM Ab Hep Bs Antigen Hep B Core IgM Ab Hep C IgG Ab 01/19/18 01/20/18 01/20/18 21:03 02:14 02:14 WBC RBC Hgb Hct MCV MCH MCHC RDW Plt Count MPV Prelim Diff (Auto) Neut % (Auto) Lymph % (Auto) [place] % (Auto) Eos % (Auto) Baso % (Auto) Neut # (Auto) Lymph # (Auto) [place] # (Auto) Eos # (Auto) Baso # (Auto) WBC Differential Diff Scan Differential Comment Platelet Estimate Platelet Morphology Target Cells PT INR APTT Sodium Potassium Chloride Carbon Dioxide Anion Gap BUN Creatinine Estimated GFR Random Glucose Calcium Total Bilirubin AST ALT Alkaline Phosphatase Ammonia 45 H Total Protein Albumin Lipase Urine Color Keila Urine Clarity Clear Urine pH 6.0 Ur Specific [place] 1.006 Urine Protein Negative Urine Glucose (UA) Negative Urine Ketones Negative Urine Occult Blood Negative Urine Nitrate Negative Urine Bilirubin Negative Urine Urobilinogen 4 or greater Ur Leukocyte Esterase Negative Urine RBC Less than 1 Urine WBC 1 Micro UA Comment Culture not ind Urine Culture Comments Culture not ind Hepatitis A IgM Ab Nonreactive Hep Bs Antigen Nonreactive Hep B Core IgM Ab Nonreactive Hep C IgG Ab Nonreactive - Imaging Impressions Abdomen/Pelvis CT 01/19/18 19:58 CONCLUSION: 1. Cirrhotic changes of the liver have become apparent since the prior CT. There is moderate ascites and mild splenomegaly. No perceptible focal lesion on these noncontrast images. 2. Sludge and/or gravel-like stones in the gallbladder. No duct stone or ductal dilatation. Gallbladder Ultrasound 01/19/18 19:58 CONCLUSION: 1. Cirrhosis. 2. Moderate ascites. 3. Wall thickening of the gallbladder, nonspecific but not uncommonly seen in the setting of chronic liver disease. No pericholecystic fluid. Negative sonographic Mccarthy's sign. 4. Dependent sludge within the gallbladder. No shadowing stones. Assessment and Plan - Plan 37-year-old male with history of alcohol abuse presents with a three-week history of abdominal swelling and scleral icterus New-onset liver failure with cirrhosis/ascites: Suspect secondary to chronic alcohol abuse. -Abdomen/pelvis CT shows cirrhotic changes of the liver; moderate ascites; mild splenomegaly; no focal lesion; sludge and/or gravel like stones in the gallbladder without ductal stone/dilatation -Gallbladder ultrasound shows cirrhosis, moderate ascites, gallbladder wall thickening which is nonspecific in the setting of chronic liver disease, no pericholecystic fluid, negative Mccarthy sign -Hepatitis profile negative -Diagnostic and therapeutic ultrasound-guided paracentesis ordered with fluid studies -Started on lactulose -Consulted gastroenterology, appreciate assistance Alcohol abuse: Chronic -Counseled on cessation -[facility] protocol -Thiamine/folate/multivitamin -Monitor closely for withdrawal Hyponatremia: Likely secondary to alcohol abuse -Monitor BMP Psoriasis: Chronic -Continue patient's home topical medication DVT prophylaxis: Teds/SCDs; avoid chemoprophylaxis with upcoming paracentesis
[2018-01-20] MEDS ORDERED: Albumin Human 25% Inj 150 ML IV.SIG ONE (12:57)
[2018-01-20] MEDS ORDERED: Lidocaine PF 1% Inj 10 ML Amp ONE (13:29)
[2018-01-20 14:21] LABS: Total Protein,Peritoneal Fluid 1.7 gm/dL
[2018-01-20 14:33] LABS: % Iron Saturation 89.3 % (20-50)
[2018-01-20 14:34] LABS: Mesothelial,Peritoneal Fluid 3 %; Neutrophils,Peritoneal Fluid 21 %; RBC,Peritoneal Fluid 585 /mm3 (0-0)
[2018-01-20 14:36] LABS: Alpha Fetoprotein Tumor Marker 4.6 ng/mL (0.5-8.0)
--- NOTE | 2018-01-20 15:28 | US ---
EXAM DATE: 01/20/2018 2:19 PM EDT AGE/SEX: 37 years / Male INDICATIONS: Ascites. CLINICAL DATA: This is the patient's initial encounter. Patient reports that signs and symptoms have been present for 1 day and indicates a pain score of 2/10. MEDICAL/SURGICAL HISTORY: Hypertension. Anxiety. Inguinal hernia. Psoriasis. ETOH abuse. . Her moise repair. COMPARISON: [facility], CT ABDOMEN & PELVIS W/O CONTRAST, 01/19/2018. . FLUID: Total volume of 5900 cc of clear, green fluid was removed. Fluid was sent to lab for ordered studies. . . TECHNIQUE: Ultrasound guidance for abdominal paracentesis. Paracentesis. The risks, benefits, and alternatives to ultrasound guided paracentesis were explained to the patient in detail including the risk of bleeding and infection. Written and verbal informed consent was obt ained. With the patient on the ultrasound table, ultrasound imaging was used to select the most appropriate approach for paracentesis. Overlying skin was prepped and draped in the usual sterile fashion and wi th a local anesthetic, a dermatotomy was made with an 11 blade scalpel. A 6 [place] [id number] ca theter was introduced into the peritoneal cavity and fluid was collected. Post procedure scanning reveals no hematoma or other complication. The patient tolerated the procedu re well and left the ultrasound suite in stable condition. CONCLUSION: 1. Successful abdominal paracentesis. Electronically signed by: Abdulaziz Pete MD 01/20/2018 3:27 PM EDT
[2018-01-21 07:38] LABS: Baso % (Auto) 1.1 % (0.0-2.0); Eos % (Auto) 0.8 % (0.0-4.0); Hematocrit 35.6 % (39.0-51.0); Hemoglobin 12.8 gm/dL (13.0-17.0); Lymph # (Auto) 0.7 th/mm3 (1.0-4.8); Lymph % (Auto) 19.6 % (9.0-44.0); Mean Corpuscular Hemoglobin 39.8 pg (27.0-34.0); Mean Corpuscular Volume 110.3 fL (80.0-100.0); Mean Platelet Volume 8.6 fL (7.0-11.0); Mono # (Auto) 0.7 th/mm3 (0.0-0.9); Mono % (Auto) 19.9 % (0.0-8.0); Neut # (Auto) 2.2 th/mm3 (1.8-7.7); Neut % (Auto) 58.6 % (16.0-70.0); Platelet Count 60 th/mm3 (150-450); Red Blood Count 3.23 mil/mm3 (4.50-5.90); Red Cell Distribution Width 16.4 % (11.6-17.2); White Blood Count 3.8 th/mm3 (4.0-11.0)
[2018-01-21 07:42] LABS: Mean Corpuscular HGB Conc 36.1 % (32.0-36.0)
[2018-01-21 08:07] LABS: Alanine Aminotransferase 61 U/L (12-78); Albumin 2.1 g/dL (3.4-5.0); Alkaline Phosphatase 134 U/L (45-117); Anion Gap 7 meq/L (5-15); Aspartate Aminotransferase 196 U/L (15-37); Blood Urea Nitrogen 6 mg/dL (7-18); Calcium 7.9 mg/dL (8.5-10.1); Carbon Dioxide 28.8 meq/L (21.0-32.0); Chloride 102 meq/L (98-107); Glomerular Filtration Rate Greater Than 89 mL/min (>89); Glucose,Random 82 mg/dL (74-106); Potassium 3.7 meq/L (3.5-5.1); Sodium 138 meq/L (136-145); Total Protein 6.6 g/dL (6.4-8.2)
[2018-01-21 08:57] LABS: Platelet Morphology Normal (Normal); Target Cells 1+
[2018-01-21] MEDS: Senna/Docusate Sodium 8.6/50 MG Tablet PO SCH (09:33)
[2018-01-21] MEDS: Multivitamin/Minerals Therapeutic Tablet PO SCH (09:33)
[2018-01-21] MEDS: Folic Acid 1 MG Tablet PO SCH (09:34)
--- NOTE | 2018-01-21 11:33 | P.PNGI ---
Subjective Interval history: Resting in the bed with family present currently patient states feeling better with less abdominal discomfort, no nausea no vomiting. Current hemoglobin 12.8 <CristelaLeticia Gifty - Last Filed: 01/21/18 11:27> Physical Exam Vital signs: Vital Signs 01/20/18 12:20 01/20/18 12:35 01/20/18 12:47 Temperature 98.0 F 98.3 F Pulse Rate 76 71 65 Respiratory Rate 16 16 16 Blood Pressure 126/80 105/68 133/84 Pulse Oximetry 97 99 93 L 01/20/18 15:48 01/20/18 20:00 01/21/18 00:00 Temperature 98.2 F 98.4 F 98.6 F Pulse Rate 81 81 88 Respiratory Rate 16 16 19 Blood Pressure 126/76 123/71 131/80 Pulse Oximetry 96 96 95 01/21/18 04:00 01/21/18 08:00 Temperature 98.1 F 98.6 F Pulse Rate 96 H 85 Respiratory Rate 18 16 Blood Pressure 155/77 H 138/88 Pulse Oximetry 96 95 Intake & Output 01/20/18 01/21/18 01/21/18 18:59 06:59 18:59 Intake Total 150 / 150 Balance 150 / 150 Intake: IV 150 / 150 Flexbumin 25% Inj 150 ML @ 60 150 / 150 mls/hr IV.SIG ONCE ONE Rx#: [id number] - Constitutional no acute distress - Routine HEENT Exam Head: Present: normocephalic Eye: Present: EOMI ENT: Present: mucous membranes moist - Routine Neck Exam Present: supple - Routine Respiratory Exam Present: accessory muscle use (Breath sounds even unlabored) - Routine Cardiovascular Exam Present: S1 (Possible soft murmur), S2 - Routine Abdominal Exam Present: distended (Round, positive bowel sounds, soft, positive distention) - Routine Skin Exam Present: intact - Routine Neurological Exam Present: alert (Awake answer simple questions) <Leticia Archibald - Last Filed: 01/21/18 11:27> Vital signs: Vital Signs 01/20/18 20:00 01/21/18 00:00 01/21/18 04:00 Temperature 98.4 F 98.6 F 98.1 F Pulse Rate 81 88 96 H Respiratory Rate 16 19 18 Blood Pressure 123/71 131/80 155/77 H Pulse Oximetry 96 95 96 08/10/18 08:00 01/21/18 12:00 01/21/18 15:49 Temperature 98.6 F 98.8 F 98.1 F Pulse Rate 85 80 86 Respiratory Rate 16 16 16 Blood Pressure 138/88 138/83 143/86 H Pulse Oximetry 95 97 98 Intake & Output 01/20/18 01/21/18 01/21/18 18:59 06:59 18:59 Intake Total 150 / 150 Balance 150 / 150 Intake: IV 150 / 150 Flexbumin 25% Inj 150 ML @ 60 150 / 150 mls/hr IV.SIG ONCE ONE Rx#: [id number] <Yi Winters - Last Filed: 01/21/18 17:30> Results - Labs CBC & Chem 7: 01/21/18 06:31 01/21/18 06:31 Laboratory Results - last 24 hr 01/20/18 01/20/18 01/20/18 11:49 11:49 13:45 WBC RBC Hgb Hct MCV MCH MCHC RDW Plt Count MPV Prelim Diff (Auto) Neut % (Auto) Lymph % (Auto) Jack % (Auto) Eos % (Auto) Baso % (Auto) Neut # (Auto) Lymph # (Auto) Jack # (Auto) Eos # (Auto) Baso # (Auto) WBC Differential Diff Scan Differential Comment Platelet Estimate Platelet Morphology Target Cells Sodium Potassium Chloride Carbon Dioxide Anion Gap BUN Creatinine Estimated GFR Random Glucose Calcium Iron 95 TIBC 106 L % Saturation 89.3 H Ferritin 1546 H Total Bilirubin AST ALT Alkaline Phosphatase Total Protein Albumin Tumor Marker AFP 4.6 Peritoneal RBC 585 H Periton Nuc Cells 121 H Periton Neutrophils 21 Periton Lymphocytes 66 Peritoneal Monocytes 7 Periton Mesothelial 3 Periton Histiocytes 3 Peritoneal Tot Protein 1.7 Peritoneal Albumin 0.6 Peritoneal LDH 90 Peritoneal Glucose 98 Peritoneal Amylase 17 01/21/18 01/21/18 06:31 06:31 WBC 3.8 L RBC 3.23 L Hgb 12.8 L Hct 35.6 L MCV 110.3 H MCH 39.8 H MCHC 36.1 H RDW 16.4 Plt Count 60 L MPV 8.6 Prelim Diff (Auto) Slide review pending Neut % (Auto) 58.6 Lymph % (Auto) 19.6 Jack % (Auto) 19.9 H Eos % (Auto) 0.8 Baso % (Auto) 1.1 Neut # (Auto) 2.2 Lymph # (Auto) 0.7 L Jack # (Auto) 0.7 Eos # (Auto) 0.0 Baso # (Auto) 0.0 WBC Differential . Diff Scan Auto diff confirmed Differential Comment . Platelet Estimate Low L Platelet Morphology Normal Target Cells 1+ H Sodium 138 Potassium 3.7 Chloride 102 Carbon Dioxide 28.8 Anion Gap 7 BUN 6 L Creatinine 0.52 L Estimated GFR Greater than 89 Random Glucose 82 Calcium 7.9 L Iron TIBC % Saturation Ferritin Total Bilirubin 10.3 H AST 196 H ALT 61 Alkaline Phosphatase 134 H Total Protein 6.6 D Albumin 2.1 L Tumor Marker AFP Peritoneal RBC Periton Nuc Cells Periton Neutrophils Periton Lymphocytes Peritoneal Monocytes Periton Mesothelial Periton Histiocytes Peritoneal Tot Protein Peritoneal Albumin Peritoneal LDH Peritoneal Glucose Peritoneal Amylase Microbiology 01/20/18 11:49 Fluid - Peritoneal fluid Gram Stain - Final - Imaging Impressions Paracentesis Ultrasound 01/20/18 00:00 CONCLUSION: 1. Successful abdominal paracentesis. <Leticia Archibald - Last Filed: 01/21/18 11:27> - Labs CBC & Chem 7: 01/21/18 06:31 01/21/18 06:31 Laboratory Results - last 24 hr 01/20/18 01/21/18 01/21/18 13:45 06:31 06:31 WBC 3.8 L RBC 3.23 L Hgb 12.8 L Hct 35.6 L MCV 110.3 H MCH 39.8 H MCHC 36.1 H RDW 16.4 Plt Count 60 L MPV 8.6 Prelim Diff (Auto) Slide review pending Neut % (Auto) 58.6 Lymph % (Auto) 19.6 Jack % (Auto) 19.9 H Eos % (Auto) 0.8 Baso % (Auto) 1.1 Neut # (Auto) 2.2 Lymph # (Auto) 0.7 L Jack # (Auto) 0.7 Eos # (Auto) 0.0 Baso # (Auto) 0.0 WBC Differential . Diff Scan Auto diff confirmed Differential Comment . Platelet Estimate Low L Platelet Morphology Normal Target Cells 1+ H Sodium 138 Potassium 3.7 Chloride 102 Carbon Dioxide 28.8 Anion Gap 7 BUN 6 L Creatinine 0.52 L Estimated GFR Greater than 89 Random Glucose 82 Calcium 7.9 L Total Bilirubin 10.3 H AST 196 H ALT 61 Alkaline Phosphatase 134 H Total Protein 6.6 D Albumin 2.1 L HOLLEY Screen Neg Microbiology 01/20/18 11:49 Fluid - Peritoneal fluid Gram Stain - Final 01/20/18 11:49 Fluid - Peritoneal fluid Body Fluid Culture - Preliminary No growth in 24 hours <Yi Winters - Last Filed: 01/21/18 17:30> Assessment and Plan - Plan Assessment: - Newly diagnosed cirrhosis likely secondary to ETOH and labs consistent with ETOH hepatitis Pt reports he has been drinking 18 beers a day for multiple years but cut back to 5 beers a day about 3 weeks ago. Denies current on previous use of illicit drugs. Denies prescription or OTC medication. Denies any previous personal history of liver issues. Denies known family history of cirrhosis. Complaining of abdominal swelling and yellowing of his eyes x 3 weeks. Gallbladder US --> Cirrhosis. Moderate ascites. Wall thickening of the gallbladder, nonspecific but not uncommonly seen in the setting of chronic liver disease. No pericholecystic fluid. Negative sonographic Mccarthy's sign. Dependent sludge within the gallbladder. No shadowing stones. CT abdomen and pelvis WO IV contrast --> Cirrhotic changes of the liver have become apparent since the prior CT. There is moderate ascites and mild splenomegaly. No perceptible focal lesion on these noncontrast images. Sludge and/or gravel-like stones in the gallbladder. No duct stone or ductal dilatation. (01/19) AST-270 ALT-77 Alk phos-181 T bili-9.9 DF-19 MELD-19 Ammonia-45 Hepatitis panel negative Labs consistent with cirrhosis Hypoalbuminemia (albumin-2.3) Coagulopathy (INR 1.4) Thrombocytopenia ( platelets-78) 01/21/2018 patient is status post paracentesis on 01/20/2018. Patient is having no shortness of breath and states he is feeling much better no current abdominal pain. Labs show hemoglobin 12.8, PT/INR 1.4, bilirubin 10.3, AST 196 ALT 61 alkaline phosphatase 134, AFP 4.6, alpha-1 antitrypsin and ceruloplasmin pending. Will need to continue to monitor liver labs and encouraged outpatient follow-up with GI. Discussed with patient and his family the need for alcohol abstinence patient understands and states he is not going to drink anymore alcohol. Patient realizes alcohol is the cause for his cirrhosis and ascites. Supportive care given. Once patient is stable he can follow-up with GI as outpatient Plan: Diet, as tolerated Lactulose Folic acid Bowel regimen meds as needed Vitamins Alcohol abstinence Pt seen per myself and Dr. Winters , note written on her behalf <Leticia Archibald - Last Filed: 01/21/18 11:27> - Attending Attestation seen, examined agree with above fu gi in 2 weeks daily weight low sodium diet start Lasix 20 mg po daily, Aldactone 50 mg po daily avoid etoh <Yi Winters - Last Filed: 01/21/18 17:30>
--- NOTE | 2018-01-21 14:44 | P.PN ---
Subjective Interval history: Follow-up for new onset liver failure, ascites, nausea/vomiting. Patient reports overall feeling slightly better, however still nauseous this morning with an episode of dry heaving and small amount of clear emesis around 10 AM. He reports his abdominal swelling/pressure is much improved after his paracentesis yesterday. He reports 3 loose bowel movements overnight. Denies any fevers or chills. He is tolerating small amount of oral intake. Again discussed alcohol cessation. The patient states he has eliminated all beer/ alcohol from the house and he is motivated to quit. He denies any tremors or withdrawal symptoms. He is asking when he can be discharged. Physical Exam Vital signs: Vital Signs 01/20/18 15:48 01/20/18 20:00 01/21/18 00:00 Temperature 98.2 F 98.4 F 98.6 F Pulse Rate 81 81 88 Respiratory Rate 16 16 19 Blood Pressure 126/76 123/71 131/80 Pulse Oximetry 96 96 95 01/21/18 04:00 01/21/18 08:00 01/21/18 12:00 Temperature 98.1 F 98.6 F 98.8 F Pulse Rate 96 H 85 80 Respiratory Rate 18 16 16 Blood Pressure 155/77 H 138/88 138/83 Pulse Oximetry 96 95 97 Intake & Output 01/20/18 01/21/18 01/21/18 18:59 06:59 18:59 Intake Total 150 / 150 Balance 150 / 150 Intake: IV 150 / 150 Flexbumin 25% Inj 150 ML @ 60 150 / 150 mls/hr IV.SIG ONCE ONE Rx#: [id number] Narrative: GENERAL: Well-nourished, well-developed middle-aged male patient in [facility]. SKIN: Warm and dry. Multiple areas of patchy erythematous plaques consistent with psoriasis. HEENT: Normocephalic. Atraumatic. Pupils equal and round. + Scleral icterus. NECK: Supple. Trachea midline. CARDIOVASCULAR: Regular rate and rhythm. No murmur appreciated. RESPIRATORY: No accessory muscle use. Clear to auscultation. Breath sounds equal bilaterally. GASTROINTESTINAL: Abdomen soft, nontender, with distention and small amount of ascites; overall improved. Normoactive bowel sounds x4. MUSCULOSKELETAL: No obvious deformities. Extremities without clubbing, cyanosis , or edema. NEUROLOGICAL: Awake and alert. No obvious cranial nerve deficits. Motor grossly within normal limits. Moving all extremities spontaneously. Normal speech. PSYCHIATRIC: Appropriate mood and affect; insight and judgment normal. Results - Labs CBC & Chem 7: 01/21/18 06:31 01/21/18 06:31 Laboratory Results - last 24 hr 01/20/18 01/20/18 01/21/18 11:49 13:45 06:31 WBC 3.8 L RBC 3.23 L Hgb 12.8 L Hct 35.6 L MCV 110.3 H MCH 39.8 H MCHC 36.1 H RDW 16.4 Plt Count 60 L MPV 8.6 Prelim Diff (Auto) Slide review pending Neut % (Auto) 58.6 Lymph % (Auto) 19.6 [place] % (Auto) 19.9 H Eos % (Auto) 0.8 Baso % (Auto) 1.1 Neut # (Auto) 2.2 Lymph # (Auto) 0.7 L [place] # (Auto) 0.7 Eos # (Auto) 0.0 Baso # (Auto) 0.0 WBC Differential . Diff Scan Auto diff confirmed Differential Comment . Platelet Estimate Low L Platelet Morphology Normal Target Cells 1+ H Sodium Potassium Chloride Carbon Dioxide Anion Gap BUN Creatinine Estimated GFR Random Glucose Calcium Iron 95 TIBC 106 L % Saturation 89.3 H Ferritin 1546 H Total Bilirubin AST ALT Alkaline Phosphatase Total Protein Albumin Tumor Marker AFP 4.6 Peritoneal RBC 585 H Periton Nuc Cells 121 H Periton Neutrophils 21 Periton Lymphocytes 66 Peritoneal Monocytes 7 Periton Mesothelial 3 Periton Histiocytes 3 01/21/18 06:31 WBC RBC Hgb Hct MCV MCH MCHC RDW Plt Count MPV Prelim Diff (Auto) Neut % (Auto) Lymph % (Auto) [place] % (Auto) Eos % (Auto) Baso % (Auto) Neut # (Auto) Lymph # (Auto) [place] # (Auto) Eos # (Auto) Baso # (Auto) WBC Differential Diff Scan Differential Comment Platelet Estimate Platelet Morphology Target Cells Sodium 138 Potassium 3.7 Chloride 102 Carbon Dioxide 28.8 Anion Gap 7 BUN 6 L Creatinine 0.52 L Estimated GFR Greater than 89 Random Glucose 82 Calcium 7.9 L Iron TIBC % Saturation Ferritin Total Bilirubin 10.3 H AST 196 H ALT 61 Alkaline Phosphatase 134 H Total Protein 6.6 D Albumin 2.1 L Tumor Marker AFP Peritoneal RBC Periton Nuc Cells Periton Neutrophils Periton Lymphocytes Peritoneal Monocytes Periton Mesothelial Periton Histiocytes Microbiology 01/20/18 11:49 Fluid - Peritoneal fluid Gram Stain - Final 01/20/18 11:49 Fluid - Peritoneal fluid Body Fluid Culture - Preliminary No growth in 24 hours - Imaging Impressions Paracentesis Ultrasound 01/20/18 00:00 CONCLUSION: 1. Successful abdominal paracentesis. Assessment and Plan - Plan 37-year-old male with history of alcohol abuse presents with a three-week history of abdominal swelling and scleral icterus New-onset liver failure with cirrhosis/ascites: Suspect secondary to chronic alcohol abuse. -Abdomen/pelvis CT shows cirrhotic changes of the liver; moderate ascites; mild splenomegaly; no focal lesion; sludge and/or gravel like stones in the gallbladder without ductal stone/dilatation -Gallbladder ultrasound shows cirrhosis, moderate ascites, gallbladder wall thickening which is nonspecific in the setting of chronic liver disease, no pericholecystic fluid, negative Mccarthy sign -Hepatitis profile negative -S/p Diagnostic and therapeutic ultrasound-guided paracentesis on 01/20 -Peritoneal fluid sent for studies, negative so far, awaiting cytology and cultures -Started on lactulose bid -Consulted gastroenterology, appreciate assistance Nausea/Vomiting: suspect secondary to above -continued on IV zofran prn -patient still with N/V, added IV reglan 5mg q8h prn -diet as tolerated -GI on board as above Alcohol abuse: Chronic -Counseled on cessation -[facility] protocol -Thiamine/folate/multivitamin -Monitor closely for withdrawal Hyponatremia: Likely secondary to alcohol abuse -Monitor BMP Psoriasis: Chronic -Continue patient's home topical medication DVT prophylaxis: Teds/SCDs; avoid chemoprophylaxis with procedure Discharge Planning: Discharge pending further clinical improvement and clearance from gastroenterology. 1730 hrs: Patient cleared for discharge by gastroenterology. Dr. Winters recommended Lasix, Aldactone, and lactulose. Outpatient follow-up in 2 weeks with GI. Discharge patient to home Condition on discharge: Stable Liver failure diet as tolerated Ad Nicole activity Rx written: Lasix 20 mg daily, spironolactone 50 mg daily, lactulose 30 mL's twice daily Follow-up with primary care physician and gastroenterology Dr. Winters within 2 weeks
[2018-01-21] MEDS ORDERED: Furosemide 20 MG Tablet PO SCH (17:45)
[2018-01-21] MEDS ORDERED: Spironolactone 25 MG Tablet PO SCH (18:00)
[2018-01-21 21:41] LABS: Alpha 1 Antitrypsin 203 mg/dL (100 - 190); Smooth Muscle Total Auto Abs Negative (Negative)
[2018-01-24 17:50] LABS: Ceruloplasmin 21 mg/dL (18-36)
[2018-01-24 23:52] LABS: IgA Serum 1176 mg/dL (81-463); Tissue Transglutaminase Ab IgG ND U/mL (())
== END 2018-01-21 23:35 | disposition home or self-care (01) ==
LOC: NEPC 18:26 → NEDA 18:26 → NEPHCDU 01-20 02:59
PROVIDERS: ADMIT Hospitalist; ATTEND Hospitalist